=== PATIENT | female | born 1970 | race Two or more races ===

== ENCOUNTER 2017-09-13 19:29 | Emergency (ER) | payer OTHER ==
[~2017-09-13] VITALS: Ht 162.6 cm; Wt 75.3 kg
[2017-09-13] MEDS ORDERED: SIMVASTATIN10 MG (19:42)
== END 2017-09-13 22:19 | disposition home or self-care (01) ==
LOC: ER 19:29
DX: K80.20 Calculus of gallbladder without cholecystitis without obstruction (principal); R10.11 Right upper quadrant pain

== ENCOUNTER → 2018-12-27 | Emergency (ER) | payer OTHER ==
[~2018-12-27] VITALS: Ht 162.6 cm; Wt 74.8 kg
[~2018-12-27] MED LIST: SIMVASTATIN10 MG
== END | disposition home or self-care (01) ==
LOC: ER 19:45 → EMR PED 20:04
DX: G43.909 Migraine, unspecified, not intractable, without status migrainosus (principal)

== ENCOUNTER 2019-11-25 08:00 | Inpatient (IN) | payer OTHER ==
[~2019-11-25] VITALS: Ht 162.6 cm; Wt 67.1 kg
[~2019-11-25 08:00] MED LIST changes: -SIMVASTATIN10 MG; +SIMVASTATIN10 MG PO
[2019-11-25] MEDS ORDERED: SINGULAIR10 MG PO (09:37)
[2019-11-25] MEDS ORDERED: CLARITIN10 M1 PO (09:37)
[2019-11-25] MEDS ORDERED: NEXIUM 24HR20 MG PO (09:37)
[2019-11-25] MEDS ORDERED: ASPIR 8181 MG PO (09:37)
[2019-11-25] MEDS ORDERED: TENORMIN50 M1 PO (09:38)
[2019-11-25] MEDS ORDERED: ALBUTEROL0.63 MG/3 IH (09:39)
[2019-11-25] MEDS ORDERED: PROAIR HFA8.5 GM IH (09:39)
[2019-11-25] MEDS ORDERED: NORVASC10 MG PO (09:41)
[2019-11-25] MEDS ORDERED: NASAL SPRAY30 M1 (09:41)
[2019-12-23] MEDS ORDERED: ALLEGRA ALLERGY60 MG PO (11:15)
[2019-12-23] MEDS ORDERED: SYMBYAX 6-50 M1 EACH PO (11:16)
[2019-12-23] MEDS ORDERED: SYMBICORT 16010.2 GM (11:17)
[2019-12-23] MEDS ORDERED: XOPENEX0.63 MG/3 IH (11:18)
[2019-12-29] MEDS ORDERED: PROAIR HFA8.5 GM (09:04)
[2019-12-29] MEDS ORDERED: ALBUTEROL S5 MG/1 ML (09:04)
[2019-12-29] MEDS ORDERED: ASPIR 8181 MG PO (09:06)
== END 2019-12-31 16:16 | disposition home or self-care (01) | DRG 741 ==
LOC: ADM 08:00 → EDSTATUS 08:00 → RECOVERY 12-01 07:00 → O/R 12-29 06:13 → OB/GYN 12-29 06:13 → RECOVERY 12-29 07:00 → OB/GYN 12-29 10:23
PROVIDERS: ADMIT Obstetrics & Gynecology Gynecologic Oncology; ATTEND Obstetrics & Gynecology Gynecologic Oncology
PROC: 0UB70ZZ Excision of Bilateral Fallopian Tubes, Open Approach (ICD-10-PCS; 2019-12-29)
PROC: 07BC0ZX Excision of Pelvis Lymphatic, Open Approach, Diagnostic (ICD-10-PCS; 2019-12-29)
PROC: 0UT90ZZ Resection of Uterus, Open Approach (ICD-10-PCS; principal; 2019-12-29 07:00)
DX: C53.9 Malignant neoplasm of cervix uteri, unspecified (principal); I10 Essential (primary) hypertension; D25.1 Intramural leiomyoma of uterus

== ENCOUNTER 2021-08-20 10:17 | Outpatient (CLI) | payer OTHER ==
[~2021-08-20 10:17] MED LIST changes: +ALBUTEROL S5 MG/1 ML; +ALBUTEROL0.63 MG/3 IH; +ALLEGRA ALLERGY60 MG PO; +ASPIR 8181 MG PO; +CLARITIN10 M1 PO; +NASAL SPRAY30 M1; +NEXIUM 24HR20 MG PO; +NORVASC10 MG PO; +PROAIR HFA8.5 GM; +PROAIR HFA8.5 GM IH; +SINGULAIR10 MG PO; +SYMBICORT 16010.2 GM; +SYMBYAX 6-50 M1 EACH PO; +TENORMIN50 M1 PO; +XOPENEX0.63 MG/3 IH
== END 2021-08-20 10:34 | disposition home or self-care (01) ==
LOC: RAD 10:17
PROVIDERS: ATTEND Specialist
DX: R07.9 Chest pain, unspecified (principal); N63.0 Unspecified lump in unspecified breast; N64.9 Disorder of breast, unspecified; R10.2 Pelvic and perineal pain; R10.9 Unspecified abdominal pain